=== PATIENT | male | born 1965 | race African-American/Black ===

== ENCOUNTER 2020-08-23 21:22 | Inpatient (IN) | payer OTHER ==
[2020-08-23 22:55] LABS: HEMATOCRIT 37.2 % (35.4-49); HEMOGLOBIN 12.1 GM/dL (11.7-16.9); MCH 27.7 pg (25.7-33.7); MCHC 32.4 g/dl (32.0-35.9); MEAN CELL VOLUME 85.4 fl (80-96); MEAN PLT VOLUME 9.1 fl (7.5-11.1); PLATELET COUNT 155 K/MM3 (134-434); RBC 4.36 M/mm3 (4.00-5.60); RDW 14.6 % (11.9-15.9); WHITE BLOOD COUNT 3.1 K/mm3 (4.0-10.0)
[2020-08-23 23:14] LABS: POTASSIUM 3.5 mmol/L (3.5-5.1)
[2020-08-23 23:16] LABS: ALBUMIN 3.5 g/dl (3.4-5.0); BLOOD UREA NITROGEN 17.8 mg/dL (7-18); CALCIUM 8.8 mg/dL (8.5-10.1)
[2020-08-23 23:19] LABS: CREATININE 1.3 mg/dL (0.55-1.3)
[2020-08-23 23:22] LABS: BILIRUBIN,TOTAL 0.4 mg/dL (0.2-1)
[2020-08-24] MEDS ORDERED: amLODIPine BESYLATE 2.5 MG TABLET (FP) PO ONE (00:05)
[2020-08-24] MEDS ORDERED: amLODIPine BESYLATE 2.5 MG TABLET (FP) ONE (00:15)
[2020-08-24 01:31] LABS: EPI CELLS 3 /uL (0-25.1); HYALINE CASTS 0 /uL (0-3.1); PH,URINE 6.5 (5.0-8.0); URINE APPEARANCE CLEAR; URINE BACTERIA 3 /uL (0-1359); URINE BILIRUBIN NEGATIVE (NEGATIVE); URINE COLOR YELLOW; URINE GLUCOSE (UA) NEGATIVE (NEGATIVE); URINE KETONE NEGATIVE (NEGATIVE); URINE LEUK ESTERASE NEGATIVE (NEGATIVE); URINE NITRITE NEGATIVE (NEGATIVE); URINE PROTEIN 2+ (NEGATIVE); URINE RBC 12 /uL (0-23.9); URINE UROBILINOGEN 0.2 mg/dL (0.2-1.0); URINE WBC 1 /uL (0-25.8)
[2020-08-24] MEDS ORDERED: ATORVASTATIN CA 80 MG TABLET (FP) PO SCH (02:23)
[2020-08-24] MEDS ORDERED: ASPIRIN 81 MG CHEWABLE TABLETS PO ONE (02:25)
[2020-08-24] MEDS ORDERED: ASPIRIN 81 MG CHEWABLE TABLETS ONE ×2 (02:38→10:32)
[2020-08-24] MEDS ORDERED: ATORVASTATIN CA 80 MG TABLET (FP) ONE (02:38)
[2020-08-24 03:12] LABS: OPIATES, URI NEGATIVE ng/ml (CUTOFF=300)
[2020-08-24 03:13] LABS: COCAINE, UR NEGATIVE ng/ml (CUTOFF=300); PHENCYCLIDINE,URINE NEGATIVE ng/ml (CUTOFF=25); URINE BARBITURATES NEGATIVE ng/ml (CUTOFF=200)
[2020-08-24 03:23] LABS: METHADONE, UR NEGATIVE ng/ml (CUTOFF=300); URINE AMPHETAMINES NEGATIVE ng/ml (CUTOFF=500); URINE BENZODIAZEPINES NEGATIVE ng/ml (CUTOFF=200)
[2020-08-24] MEDS ORDERED: METOPROLOL TARTRATE 25 MG TABLET (FP) PO ONE (04:45)
[2020-08-24] MEDS ORDERED: ENOXAPARIN NA (PORCINE) 100 MG/1 ML DISP.SYRIN SQ ONE (04:46)
[2020-08-24] MEDS ORDERED: metoPROLOL SUCCINATE 25 MG TAB.SR.24H (FP) PO ONE (04:48)
[2020-08-24] MEDS ORDERED: HYDROCHLOROTHIAZIDE 25 MG TABLET (FP) ONE (05:05)
[2020-08-24] MEDS ORDERED: HYDROCHLOROTHIAZIDE 12.5 MG CAPSULE (FP) PO SCH ×2 (05:15→10:00)
[2020-08-24 05:54] LABS: BASO % 0.8 % (0-2.0); EOS % 1.3 % (0-4.5); HEMATOCRIT 40.5 % (35.4-49); HEMOGLOBIN 12.9 GM/dL (11.7-16.9); LYMPH % 28.9 % (8-40); MCH 27.3 pg (25.7-33.7); MCHC 31.8 g/dl (32.0-35.9); MEAN CELL VOLUME 85.8 fl (80-96); MEAN PLT VOLUME 9.6 fl (7.5-11.1); MONO % 10.4 % (3.8-10.2); NEUT % 58.6 % (42.8-82.8); PLATELET COUNT 160 K/MM3 (134-434); RBC 4.72 M/mm3 (4.00-5.60); RDW 14.9 % (11.9-15.9); WHITE BLOOD COUNT 3.3 K/mm3 (4.0-10.0)
[2020-08-24] MEDS ORDERED: NIFEdipine E.R. 30 MG TABLET ONE (06:00)
[2020-08-24 06:03] LABS: ACTIVATED PTT 36.6 SECONDS (25.2-36.5)
[2020-08-24] MEDS: NIFEdipine E.R. 30 MG TABLET PO SCH ×2 (06:03→06:06)
[2020-08-24 06:14] LABS: POTASSIUM 3.7 mmol/L (3.5-5.1)
[2020-08-24 06:17] LABS: ALBUMIN 3.5 g/dl (3.4-5.0); BLOOD UREA NITROGEN 15.1 mg/dL (7-18); CALCIUM 8.8 mg/dL (8.5-10.1)
[2020-08-24 06:21] LABS: BILIRUBIN,TOTAL 0.6 mg/dL (0.2-1); CREATININE 1.2 mg/dL (0.55-1.3); PHOSPHOROUS 3.7 mg/dL (2.5-4.9); TOT PROT 6.8 g/dl (6.4-8.2)
[2020-08-24] MEDS ORDERED: NIFEdipine E.R. 30 MG TABLET PO ONE (07:52)
[2020-08-24 08:04] LABS: INR 1.02 (0.83-1.09); PROTHROMBIN TIME (PATIENT) 12.3 SEC (9.7-13.0)
[2020-08-24] MEDS ORDERED: ENOXAPARIN NA (PORCINE) 40 MG/0.4 ML DISP.SYRIN SQ SCH (10:00)
[2020-08-24] MEDS: ASPIRIN 81 MG CHEWABLE TABLETS PO SCH (10:33)
[2020-08-24] MEDS ORDERED: LABETALOL HCL INJECTION 1,000 MG in SODIUM CHLORIDE 800 ML IV SCH (11:15)
[2020-08-24] MEDS ORDERED: NITROGLYCERIN 2% OINTMENT - 1GM PACKET TD SCH (13:18)
[2020-08-24] MEDS: LABETALOL HCL INJECTION 1,000 MG in SODIUM CHLORIDE 800 ML IV SCH (15:53)
[2020-08-24] MEDS ORDERED: SPIRONOLACTONE 25 MG TABLET ONE (16:02)
[2020-08-24] MEDS: SPIRONOLACTONE 25 MG TABLET PO SCH (16:03)
[2020-08-24] MEDS: NITROGLYCERIN 2% OINTMENT - 1GM PACKET TD SCH (18:52)
[2020-08-24] MEDS ORDERED: NITROGLYCERIN 2% OINTMENT - 1GM PACKET TD ONE (18:53)
[2020-08-24] MEDS ORDERED: ENOXAPARIN NA (PORCINE) 100 MG/1 ML DISP.SYRIN SQ SCH (22:00)
[2020-08-24] MEDS: MUPIROCIN 2% TOPICAL OINTMENT FOR DECOLONIZATION NS SCH (22:24)
[2020-08-24] MEDS: CHLORHEXIDINE GLUCONATE 4% CLEANSER FOR DECOLONIZATION TP SCH (22:24)
[2020-08-24] MEDS ORDERED: ACETAMINOPHEN 325 MG TABLET (FP) ONE (22:48)
[2020-08-24] MEDS ORDERED: ACETAMINOPHEN 325 MG TABLET (FP) PO ONE (23:18)
[2020-08-25] MEDS: NITROGLYCERIN 2% OINTMENT - 1GM PACKET TD SCH ×2 (00:35→05:41)
[2020-08-25 07:34] LABS: BASO % 0.5 % (0-2.0); EOS % 0.6 % (0-4.5); HEMATOCRIT 37.8 % (35.4-49); HEMOGLOBIN 12.4 GM/dL (11.7-16.9); LYMPH % 22.8 % (8-40); MCH 28.1 pg (25.7-33.7); MCHC 32.7 g/dl (32.0-35.9); MEAN CELL VOLUME 85.9 fl (80-96); MONO % 8.6 % (3.8-10.2); NEUT % 67.5 % (42.8-82.8); PLATELET COUNT 151 K/MM3 (134-434); RDW 14.6 % (11.9-15.9); WHITE BLOOD COUNT 3.5 K/mm3 (4.0-10.0)
[2020-08-25 07:40] LABS: POTASSIUM 3.6 mmol/L (3.5-5.1)
[2020-08-25 07:41] LABS: BLOOD UREA NITROGEN 18.5 mg/dL (7-18); CALCIUM 8.6 mg/dL (8.5-10.1)
[2020-08-25 07:44] LABS: CREATININE 1.5 mg/dL (0.55-1.3); PHOSPHOROUS 4.7 mg/dL (2.5-4.9)
[2020-08-25 09:25] LABS: ERYTHROCYTE SEDIMENTATION RATE 8 mm/hr (0-20)
[2020-08-25] MEDS: NIFEdipine E.R. 30 MG TABLET PO SCH (10:00)
[2020-08-25] MEDS: ASPIRIN 81 MG CHEWABLE TABLETS PO SCH (10:00)
[2020-08-25] MEDS: metoPROLOL SUCCINATE 25 MG TAB.SR.24H (FP) PO SCH (10:00)
[2020-08-25] MEDS: SPIRONOLACTONE 25 MG TABLET PO SCH (10:00)
[2020-08-25] MEDS: MUPIROCIN 2% TOPICAL OINTMENT FOR DECOLONIZATION NS SCH ×2 (11:42→22:00)
[2020-08-25] MEDS: HEPARIN NA (PORCINE) 5,000 UNITS/ML 1ML VIAL SQ SCH ×2 (13:54→22:00)
[2020-08-25] MEDS: LABETALOL HCL INJECTION 1,000 MG in SODIUM CHLORIDE 800 ML IV SCH (16:32)
[2020-08-25] MEDS: CHLORHEXIDINE GLUCONATE 4% CLEANSER FOR DECOLONIZATION TP SCH (22:00)
[2020-08-25] MEDS ORDERED: LABETALOL HCL 5 MG/1 ML (100MG/20 ML VIAL) IVPUSH ONE (23:25)
[2020-08-26] MEDS ORDERED: LABETALOL HCL 5 MG/1 ML (100MG/20 ML VIAL) IVPUSH ONE (04:23)
[2020-08-26] MEDS: HEPARIN NA (PORCINE) 5,000 UNITS/ML 1ML VIAL SQ SCH ×3 (07:12→21:42)
[2020-08-26] MEDS: metoPROLOL SUCCINATE 25 MG TAB.SR.24H (FP) PO SCH (09:30)
[2020-08-26] MEDS: MUPIROCIN 2% TOPICAL OINTMENT FOR DECOLONIZATION NS SCH ×2 (10:00→21:42)
[2020-08-26] MEDS: ASPIRIN 81 MG CHEWABLE TABLETS PO SCH (10:00)
[2020-08-26] MEDS ORDERED: NIFEdipine E.R 60 MG TABLET PO SCH (10:00)
[2020-08-26] MEDS: SPIRONOLACTONE 25 MG TABLET PO SCH (10:00)
[2020-08-26 12:19] VITALS: BMI 22.8
[2020-08-26] MEDS: LABETALOL HCL 100 MG TABLET (FP) PO SCH ×2 (12:37→21:00)
[2020-08-26 13:48] LABS: BLOOD UREA NITROGEN 15.6 mg/dL (7-18); CALCIUM 8.7 mg/dL (8.5-10.1)
[2020-08-26 13:51] LABS: CREATININE 1.4 mg/dL (0.55-1.3)
[2020-08-26] MEDS: CHLORHEXIDINE GLUCONATE 4% CLEANSER FOR DECOLONIZATION TP SCH (21:42)
[2020-08-26] MEDS: LABETALOL HCL INJECTION 1,000 MG in SODIUM CHLORIDE 800 ML IV SCH (21:42)
[2020-08-26] MEDS ORDERED: INSULIN (NOVOLOG) ASPART 100 UNITS/ML 10ML VIAL ONE (22:17)
[2020-08-27 06:46] LABS: HEMATOCRIT 38.3 % (35.4-49); HEMOGLOBIN 12.2 GM/dL (11.7-16.9); MCH 27.2 pg (25.7-33.7); MCHC 31.8 g/dl (32.0-35.9); MEAN CELL VOLUME 85.7 fl (80-96); MEAN PLT VOLUME 9.2 fl (7.5-11.1); PLATELET COUNT 176 K/MM3 (134-434); RBC 4.47 M/mm3 (4.00-5.60); RDW 14.6 % (11.9-15.9); WHITE BLOOD COUNT 3.8 K/mm3 (4.0-10.0)
[2020-08-27] MEDS: HEPARIN NA (PORCINE) 5,000 UNITS/ML 1ML VIAL SQ SCH ×3 (06:55→21:04)
[2020-08-27 07:02] LABS: POTASSIUM 4.4 mmol/L (3.5-5.1)
[2020-08-27 07:08] LABS: CALCIUM 8.7 mg/dL (8.5-10.1)
[2020-08-27 07:09] LABS: ALBUMIN 3.1 g/dl (3.4-5.0); BLOOD UREA NITROGEN 16.8 mg/dL (7-18); MAGNESIUM 2.1 mg/dL (1.8-2.4)
[2020-08-27 07:12] LABS: CREATININE 1.5 mg/dL (0.55-1.3)
[2020-08-27 07:14] LABS: BILIRUBIN,TOTAL 0.4 mg/dL (0.2-1); TOT PROT 6.5 g/dl (6.4-8.2)
[2020-08-27] MEDS: NIFEdipine E.R. 90 MG TABLET PO SCH (10:11)
[2020-08-27] MEDS: ASPIRIN 81 MG CHEWABLE TABLETS PO SCH (10:11)
[2020-08-27] MEDS: MUPIROCIN 2% TOPICAL OINTMENT FOR DECOLONIZATION NS SCH ×2 (10:11→21:04)
[2020-08-27] MEDS: SPIRONOLACTONE 25 MG TABLET PO SCH (10:11)
[2020-08-27] MEDS: LABETALOL HCL 200 MG TABLET (FP) PO SCH ×2 (10:11→21:04)
[2020-08-27] MEDS: CHLORHEXIDINE GLUCONATE 4% CLEANSER FOR DECOLONIZATION TP SCH (21:04)
[2020-08-28] MEDS: HEPARIN NA (PORCINE) 5,000 UNITS/ML 1ML VIAL SQ SCH ×3 (06:10→21:09)
[2020-08-28] MEDS ORDERED: LABETALOL HCL 5 MG/1 ML (100MG/20 ML VIAL) IVPUSH ONE ×2 (06:36→06:45)
[2020-08-28 07:13] LABS: POTASSIUM 4.3 mmol/L (3.5-5.1)
[2020-08-28 07:16] LABS: BLOOD UREA NITROGEN 20.5 mg/dL (7-18)
[2020-08-28 07:18] LABS: CALCIUM 8.7 mg/dL (8.5-10.1)
[2020-08-28 07:19] LABS: CREATININE 1.4 mg/dL (0.55-1.3)
[2020-08-28 07:20] LABS: PHOSPHOROUS 4.3 mg/dL (2.5-4.9)
[2020-08-28 07:21] LABS: HEMATOCRIT 39.2 % (35.4-49); HEMOGLOBIN 12.7 GM/dL (11.7-16.9); MCH 27.8 pg (25.7-33.7); MCHC 32.4 g/dl (32.0-35.9); MEAN CELL VOLUME 85.8 fl (80-96); MEAN PLT VOLUME 9.3 fl (7.5-11.1); PLATELET COUNT 157 K/MM3 (134-434); RBC 4.56 M/mm3 (4.00-5.60); RDW 14.3 % (11.9-15.9); WHITE BLOOD COUNT 3.1 K/mm3 (4.0-10.0)
[2020-08-28] MEDS: cloNIDine HCL 0.1 MG TABLET PO SCH ×2 (10:24→21:10)
[2020-08-28] MEDS: ASPIRIN 81 MG CHEWABLE TABLETS PO SCH (10:25)
[2020-08-28] MEDS: LABETALOL HCL 200 MG TABLET (FP) PO SCH ×2 (10:25→21:10)
[2020-08-28] MEDS: MUPIROCIN 2% TOPICAL OINTMENT FOR DECOLONIZATION NS SCH ×2 (10:25→21:10)
[2020-08-28] MEDS: NIFEdipine E.R. 90 MG TABLET PO SCH (10:25)
[2020-08-28] MEDS: CHLORTHALIDONE 25 MG TABLET PO SCH (14:35)
[2020-08-28] MEDS ORDERED: SPIRONOLACTONE 25 MG TABLET PO SCH (22:00)
[2020-08-28] MEDS: CHLORHEXIDINE GLUCONATE 4% CLEANSER FOR DECOLONIZATION TP SCH (22:50)
[2020-08-29] MEDS: HEPARIN NA (PORCINE) 5,000 UNITS/ML 1ML VIAL SQ SCH (06:26)
[2020-08-29 06:44] LABS: HEMATOCRIT 39.9 % (35.4-49); HEMOGLOBIN 12.6 GM/dL (11.7-16.9); MCH 27.2 pg (25.7-33.7); MCHC 31.7 g/dl (32.0-35.9); MEAN CELL VOLUME 85.8 fl (80-96); MEAN PLT VOLUME 8.9 fl (7.5-11.1); PLATELET COUNT 184 K/MM3 (134-434); RBC 4.64 M/mm3 (4.00-5.60); RDW 14.6 % (11.9-15.9); WHITE BLOOD COUNT 3.1 K/mm3 (4.0-10.0)
[2020-08-29 07:01] LABS: POTASSIUM 4.2 mmol/L (3.5-5.1)
[2020-08-29 07:03] LABS: BLOOD UREA NITROGEN 19.6 mg/dL (7-18); MAGNESIUM 1.9 mg/dL (1.8-2.4)
[2020-08-29 07:06] LABS: CREATININE 1.4 mg/dL (0.55-1.3); PHOSPHOROUS 4.2 mg/dL (2.5-4.9)
[2020-08-29] MEDS: NIFEdipine E.R. 90 MG TABLET PO SCH (09:43)
[2020-08-29] MEDS: LABETALOL HCL 200 MG TABLET (FP) PO SCH (09:43)
[2020-08-29] MEDS: ASPIRIN 81 MG CHEWABLE TABLETS PO SCH (09:43)
[2020-08-29] MEDS: cloNIDine HCL 0.1 MG TABLET PO SCH (09:43)
[2020-08-29] MEDS ORDERED: PT OWN MED DRAWER 7, Y5N ONE (10:29)
[2020-08-29] MEDS: CHLORTHALIDONE 25 MG TABLET PO SCH (10:31)
[2020-08-29] MEDS: MUPIROCIN 2% TOPICAL OINTMENT FOR DECOLONIZATION NS SCH (10:32)
[2020-08-29 10:56] VITALS: PULSE 82; TEMP 98.1
[2020-08-29 12:25] VITALS: BP 161/113
[2020-09-04 07:07] LABS: RENIN ACTIVITY(PRA) 0.405 ng/mL/hr (0.167-5.380)
== END 2020-08-29 13:00 | disposition home or self-care (01) | DRG 199 ==
LOC: JER 21:22 → JERBED 08-24 01:03 → OBSVTOIN 08-24 02:19 → JICU 08-24 21:15
PROVIDERS: ADMIT Internal Medicine; ATTEND Student in an Organized Health Care Education/Training Program
DX: I16.0 Hypertensive urgency (principal); U07.1 COVID-19; N17.9 Acute kidney failure, unspecified; I10 Essential (primary) hypertension; R79.89 Other specified abnormal findings of blood chemistry; I77.819 Aortic ectasia, unspecified site; R80.9 Proteinuria, unspecified; R31.9 Hematuria, unspecified; Z91.14 Patient's other noncompliance with medication regimen
CPT/HCPCS: 36415; 71045-TC-FY; 76775-TC; 80048; 80053; 80061; 80307; 81003; 82088; 82533; 82550; 82553; 82565; 82728; 83036; 83615; 83721; 83735; 83835; 84100; 84156; 84244; 84484; 85025; 85027; 85379; 85610; 85651; 85730; 86038; 86140; 86162; 86317; 86704; 86803; 87340; 93005; 93010; 93306-TC; 99285-25; C9803; G0378; J0735; J1644; U0003

== ENCOUNTER 2021-05-13 10:31 | Emergency (ER) | payer SELFPAY ==
[2021-05-13 10:58] VITALS: BMI 26.6
[2021-05-13] MEDS ORDERED: SODIUM CHLORIDE 0.9% 500 ML INFUS.BAG IV ONE (12:21)
[2021-05-13] MEDS ORDERED: NIFEdipine 10 MG CAPSULE (FP) PO ONE ×2 (12:35→13:00)
[2021-05-13 13:01] LABS: BASO % 0.9 % (0-2.0); EOS % 1.2 % (0-4.5); HEMATOCRIT 37.8 % (35.4-49); HEMOGLOBIN 12.4 GM/dL (11.7-16.9); LYMPH % 32.2 % (8-40); MCH 28.5 pg (25.7-33.7); MCHC 32.9 g/dl (32.0-35.9); MEAN CELL VOLUME 86.7 fl (80-96); MEAN PLT VOLUME 9.1 fl (7.5-11.1); MONO % 6.6 % (3.8-10.2); NEUT % 59.1 % (42.8-82.8); PLATELET COUNT 181 10^3/uL (134-434); RBC 4.36 M/mm3 (4.00-5.60); RDW 15.1 % (11.9-15.9); WHITE BLOOD COUNT 3.9 K/mm3 (4.0-10.0)
[2021-05-13 13:29] LABS: ALBUMIN 3.5 g/dl (3.4-5.0); CALCIUM 8.9 mg/dL (8.5-10.1)
[2021-05-13 13:30] LABS: BLOOD UREA NITROGEN 18.8 mg/dL (7-18)
[2021-05-13 13:33] LABS: CREATININE 1.6 mg/dL (0.55-1.3)
[2021-05-13 13:44] LABS: BILIRUBIN,TOTAL 0.2 mg/dL (0.2-1)
[2021-05-13] MEDS ORDERED: NIFEdipine E.R. 30 MG TABLET PO ONE (15:18)
[2021-05-13] MEDS ORDERED: NIFEdipine E.R. 30 MG TABLET ONE (15:22)
[2021-05-13] MEDS ORDERED: amLODIPine BESYLATE 10 MG TABLET (FP) PO ONE (16:50)
[2021-05-13] MEDS ORDERED: amLODIPine BESYLATE 5 MG TABLET (FP) ONE (16:51)
[2021-05-13 17:10] VITALS: BP 217/146; PULSE 76; TEMP 98.3
== END 2021-05-13 17:00 | disposition left against medical advice (07) ==
LOC: JER 10:31
DX: I10 Essential (primary) hypertension (principal)
CPT/HCPCS: 36415; 80053; 85025; 93005; 93010; 99284-25